=== PATIENT | male | born 1975 | race Caucasian/White ===

== ENCOUNTER 2019-04-14 14:34 | Emergency (ER) | payer OTHER ==
[~2019-04-14] VITALS: Ht 175.3 cm; Wt 87.0 kg
[~2019-04-14 14:34] MED LIST: NAPR-985 PO
[2019-04-14 14:51] VITALS: BP 130/76; PULSE 85; RESP 18; Ht 175.3 cm; Wt 87.0 kg
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
== END 2019-04-14 17:04 | disposition home or self-care (01) ==
LOC: FTE 14:34
DX: S70.11XA Contusion of right thigh, initial encounter (principal); W01.198A Fall on same level from slipping, tripping and stumbling with subsequent striking against other object, initial encounter; Y92.9 Unspecified place or not applicable
CPT/HCPCS: 73550; 93971